=== PATIENT | female | born 1965 | race Caucasian/White ===

== ENCOUNTER 2017-10-04 23:41 | Inpatient (IN) | payer MEDICAID ==
--- NOTE | 2017-10-05 00:13 | ERNOTE ---
Abdominal HPI - General Chief Complaint: Abdominal Pain Time Seen by Provider: 10/05/17 00:04 Source: patient Exam Limitations: no limitations - Immun/Allergies/Home Medications Immunizatons: IMMUNIZATION HX Immunizations Up to Date Yes History of Influenza Vaccine Yes Allergies/Adverse Reactions: Allergies No Known Allergies Allergy (Unverified 10/04/17 23:50) Home Medications: HOME MEDICATIONS NK [No Home Medication] 10/04/17 [Last Taken Unknown] - History of Present Illness Narrative: Pt seen at [place], [place] and diagnosed with appendicitis. Dr. Kirby was contacted and he accepted the patient in transfer. Pt arrived by EMS [facility]. Timing: other - improved after analgesic administration at OSH . Quality: moderate, aching - constant, sharpness - when she moves Activities at Onset: none Modifying Factors - (Improves): Present: lying down - on her back Modifying Factors - (Worsens): Present: lying down - on either side, movement Associated Symptoms: Present: nausea, vomiting - x 1, loss of appetite. Absent : diaphoresis Prior Treatment: Present: recently seen Review of Systems - Review of Systems Constitutional: Absent: recent illness, fever, chills EYE: Present: no symptoms reported ENT: Present: no symptoms reported Respiratory: Absent: shortness of breath Cardiology: Absent: chest pain Gastrointestinal/Abdominal: Present: See HPI Genitourinary: Absent: frequency, pain, dysuria Musculoskeletal: Present: back pain Skin: Absent: rash Neurological: Present: no symptoms reported Endocrine: Present: no symptoms reported Hematologic/Lymphatic: Present: no symptoms reported Psych: Present: no symptoms reported - Patient's Past Medical History Patient History - Medical: Anxiety Patient History - Cardiac/Respiratory: No pertinent hx Patient History - Cancer: No Hx of Cancer Patient History - Surgical Procedures: Hysterectomy - Social History Living Situations: home Smoking Status: Former smoker Alcohol Use: rarely Drug Use: none - Immunizations Immunizations Up to Date: Yes History of Influenza Vaccine: Yes Physical Exam - Physical Exam General Appearance: Present: wd/wn, alert, no apparent distress Head Exam: Present: normal inspection, no evidence of injury Ears, Nose, Throat: Present: normal ENT inspection Neck: Present: normal inspection, nontender Respiratory: Present: no respiratory distress, normal breath sounds, no accessory muscle use, lungs clear Cardiovascular/Chest: Present: regular rate, rhythm, no murmur Gastrointestinal/Abdominal: Present: normal bowel sounds, tenderness - RLQ. Absent: guarding, rebound Extremity Exam: Present: normal inspection, normal range of motion, no edema Neurological Exam: Present: alert, oriented, normal mood/affect, no motor/ sensory deficits Skin Exam: Present: normal color, warm/dry Lymphatic Exam: Present: no adenopathy ED Progress - Vital Signs Vital Signs: Vital Signs 10/04/17 23:45 Temperature 36.8 C Pulse Rate 81 Respiratory 18 Rate Blood Pressure 144/83 O2 Sat by Pulse 97 Oximetry - Progress/Reassessment Chief Complaint: Abdominal Pain Departure Clinical Impression: Appendicitis Qualifiers: Appendicitis type: acute appendicitis Acute appendicitis type: with localized peritonitis Qualified Code(s): K35.3 - Acute appendicitis with localized peritonitis - Departure Disposition: [facility] Condition: Good
--- NOTE | 2017-10-05 00:53 | HP ---
Chief Complaint - Chief Complaint Date of Service: 10/05/17 Time of Service: 00:47 Chief Complaint: RLQ abdominal pain History of Present Illness: Pt presented to [facility] for evaluation of RLQ abdominal pain that started early yesterday morning. It started as epigastric and then migrated to the RLQ. She was found to have a mildly elevated WBC with shift and a CT of the abdomen had findings consistent with acute appendicitis without perforation or abscess. I discussed the case with the [facility] and accepted the patient in transfer. The patient worked part of the day today. She works at the [facility] in [place]. - Patient's Past Medical History Patient History - Medical: Anxiety Patient History - Cardiac/Respiratory: No pertinent hx Patient History - Cancer: No Hx of Cancer Patient History - Surgical Procedures: Hysterectomy - Family History Family History:: no untoward family reactions to anesthesia, no familial bleeding tendencies - Social History Living Situations: home Smoking Status: Former smoker Alcohol Use: rarely Drug Use: none - Immunizations Immunizations Up to Date: Yes History of Influenza Vaccine: Yes Review Of Systems (GEN) - Review of Systems Abdominal: Present: Nausea, Abdominal Pain Genitourinary: Present: Other - Rectocele Misc: All systems neg except as marked Allergies/Adverse Reactions: Allergies Allergy/AdvReac Type Severity Reaction Status Date / Time No Known Allergies Allergy Unverified 10/04/17 23:50 Home Medications: HOME MEDICATIONS NK [No Home Medication] 10/04/17 [Last Taken Unknown] Exam - Exam Vital Signs: Vital Signs - Last Taken Temp 36.8 C 10/04/17 23:45 Pulse 81 10/04/17 23:45 Resp 18 10/04/17 23:45 BP 144/83 10/04/17 23:45 Pulse Ox 97 10/04/17 23:45 Constitutional: Present: Alert, Oriented x3, Cooperative, Well developed, Well nourished, No distress ENT Exam: Present: normal ENT inspection Eye Exam: bilateral eye: normal inspection Neck: Present: full range of motion, supple, trachea midline Respiratory: Present: lungs clear, normal breath sounds, no respiratory distress , no accessory muscle use Cardiovascular/Chest: Present: regular rate, rhythm, no murmur Abdomen: Present: Normal bowel sounds, soft, tender - RLQ Extremity: Present: normal inspection Skin Exam: Present: normal color, warm/dry Neurologic: Present: no motor/sensory deficits Appearance: Present: appropriate appearance, appropriate insight Eye contact: Present: cooperative, good eye contact, normal speech Thoughts: Present: normal thought pattern Assessment/Plan - Narrative Narrative: Plan laparoscopic appendectomy. The options, risks, and benefits of the intended procedure with reviewed with the patient fully. She seems to understand, asks appropriate questions, and desires to proceed. - Assessment/Plan (1) Appendicitis Problem: Acute Qualifiers: Appendicitis type: acute appendicitis Acute appendicitis type: with localized peritonitis Qualified Code(s): K35.3 - Acute appendicitis with localized peritonitis
[2017-10-05] MEDS ORDERED: MORPHINE SULFATE 4 MG/ML SYRG IV PRN (00:55)
[2017-10-05] MEDS ORDERED: RINGER'S SOLUTION,LACTATED 1,000 ML IV ONE ×3 (00:55→08:01)
[2017-10-05] MEDS ORDERED: ONDANSETRON HCL/PF 2 MG/ML VIAL IV PRN (00:56)
[2017-10-05] MEDS ORDERED: LEVOFLOXACIN IN DEXTROSE 5 % 750 MG/150 ML BAG IV ONE (00:57)
[2017-10-05] MEDS: metroNIDAZOLE/SODIUM CHLORIDE 500 MG/100 ML BAG IV SCH ×3 (03:31→17:32)
[2017-10-05] MEDS ORDERED: BUPIVACAINE HCL 50 ML VIAL IJ ONE (07:30)
--- NOTE | 2017-10-05 09:13 | OR ---
Operative Report - Dictated Report Narrative: Date: 10/05/2017 Preoperative diagnosis: Acute appendicitis nonperforated Postoperative diagnosis same, numerous dense adhesions of the peritoneal cavity Procedure: Diagnostic laparoscopy, converted to open procedure, open appendectomy Staff surgeon: Joseph Kirby MD Anesthesia: Gen. endotracheal EBL: Less than 10 mL Specimens: Appendix Complications: None apparent Drains: None Description of procedure: The patient was placed in the supine position and following the induction of general endotracheal anesthesia the Castro catheter was inserted and SCD boots were applied and the abdomen was then prepped and draped in a sterile fashion. All port sites were anesthetized with Marcaine prior to incision. A supraumbilical site for the first entry port was selected due to numerous previous lower midline surgeries, mostly pelvic in nature. A transverse 5 mm incision was carried out and a perforating towel clip was placed through the skin for countertraction. The abdomen was entered under direct vision with a 5 mm blunt port with the scope within the lumen of the trocar. The abdomen was then insufflated to a pressure of 15 mmHg with carbon dioxide. The scope was inserted through this port site and inspection was carried out. There were numerous dense adhesions and numerous loops of small bowel that had been excluded from the abdominal cavity and the properitoneum. A 5 mm incision was carried out in the right paraumbilical area and blunt dissection was taken down to the abdominal wall with hemostats a 5 mm port that was blunt was partially inserted through the abdominal wall however we could not see exactly where the route of egress with take it into the peritoneal cavity and therefore this port was withdrawn and the laparoscopic approach was planned. The case was then converted to an open procedure. We surface map the cecum which was not visualized due to all the adhesions and a Tomas Scott incision was carried out in the right lower quadrant once again this incision was anesthetized with Marcaine as well dissection was taken down to the rectus sheath and external oblique upon urosepsis and these structures were divided in the direction of its fibers the external black and internal oblique were divided with electrocautery laterally. The peritoneal cavity was entered with extreme caution sharply with a 15 blade due to adhesions to the peritoneum in this region and then a meticulous dissection was carried out to free the cecum from surrounding adhesions. Eventually we were able to identify the taenia libera. Followed this down to the base of the appendix the terminal ileum was also densely adherent to the appendix was physically scissored dissection and finger dissection were carried out to free the appendix the appendix was then transected at its base with an Endo PAUL device and then the mesoappendix was taken down with an Endo PAUL PAUL device as well. Hemostasis appeared to be adequate. The appendix was retrograde but not perforated and was quite foreshortened. Hemostasis appeared to be adequate is no purulence that was encountered no significant inflammation. The posterior fascial elements were closed with a heavy running whip stitch of PDS as well as the anterior fascial elements and all incisions were closed with estuardo. Sterile dressings were applied and the patient was discharged from the operating room stable condition without apparent complications.
[2017-10-05] MEDS: oxyCODONE HCL/ACETAMINOPHEN 1 TAB TABLET PO PRN ×3 (09:38→19:50)
[2017-10-05] MEDS: RINGER'S SOLUTION,LACTATED 1,000 ML IV PRN ×3 (09:38→23:18)
[2017-10-06] MEDS: oxyCODONE HCL/ACETAMINOPHEN 1 TAB TABLET PO PRN ×3 (01:49→12:21)
[2017-10-06] MEDS: metroNIDAZOLE/SODIUM CHLORIDE 500 MG/100 ML BAG IV SCH ×2 (01:51→09:41)
[2017-10-06 07:45] VITALS: BP 125/78
[2017-10-06] MEDS ORDERED: MORPHINE SULFATE 2 MG/ML DISP.SYRIN IV PRN (10:30)
--- NOTE | 2017-10-06 11:15 | DS ---
(1) Appendicitis Problem: Resolved Qualifiers: Appendicitis type: acute appendicitis Acute appendicitis type: with localized peritonitis Qualified Code(s): K35.3 - Acute appendicitis with localized peritonitis Description of Stay: This patient was transferred from [facility] with s/s consistent with acute appendicitis. She was taken to the operating room after a brief hydration period and cooling off with IV antibiotics. At operation she was found to have significant adhesions and the procedure was converted to open and an appendectomy was performed. She tolerated the procedure well without any apparent complications. There was no purulence and the appendix was not ruptured. Pathology confirms clinical findings. IV antibiotics were not continued postoperatively. Her postop convalescence was unremarkable and advanced rapidly to a regular diet. She is having CO2 gas pains but this is controlled with PO pain meds. Dressing is clean dry and intact. She is dismissed in improved condition. INSTRUCTIONS: Regular diet No lifting > 20 lbs x 6 weeks May shower May remove dressings tomorrow then cover daily with gauze FU next Do no submerse wound until estuardo removed RTW given Procedures Performed: see notes below List Procedures: Diagnostic laparoscopy, convert to open procedure, open appendectomy. Discharge Disposition: Home self care Disposition: Home self-care Condition: Good Discharge Activity: No Lifting - > 20 lb x 6 weeks Discharge Diet: General/regular food Prescriptions (Any new or edited meds): oxyCODONE HCL/ACETAMINOPHEN [Oxycodone-Acetaminophen 5-325] 1 each PO Q4H PRN 14 Days #60 tablet PRN Reason: Pain Complete Home Medications List: Complete Home Medication List: oxyCODONE HCL/ACETAMINOPHEN [Oxycodone-Acetaminophen 5-325] 1 each PO Q4H PRN 14 Days #60 tablet 10/06/17
== END 2017-10-06 12:28 | disposition home or self-care (01) | DRG 337 ==
LOC: ER 23:41 → MS 10-05 00:34 → OBSVTOIN 10-05 00:34
PROVIDERS: ADMIT Specialist; ATTEND Specialist
PROC: 0DTJ0ZZ Resection of Appendix, Open Approach (ICD-10-PCS; principal; 2017-10-05)
PROC: 0DJD4ZZ Inspection of Lower Intestinal Tract, Percutaneous Endoscopic Approach (ICD-10-PCS; 2017-10-05)
PROC: 0DNH0ZZ Release Cecum, Open Approach (ICD-10-PCS; 2017-10-05)
DX: K35.3 Acute appendicitis with localized peritonitis (principal); K66.0 Peritoneal adhesions (postprocedural) (postinfection)